=== PATIENT | female | born 1995 | race Caucasian/White ===

== ENCOUNTER 2017-11-02 07:13 | Emergency (ER) | payer OTHER ==
[2017-11-02 07:33] VITALS: BP 148/88
[2017-11-02] MEDS ORDERED: Ibuprofen TAB* 600 MG PO ONE (07:38)
--- NOTE | 2017-11-02 07:45 | UC ---
Ear Complaint HPI - HPI Summary HPI Summary: Awoke with right ear pain at 5 AM. Has allergies and gets shots. - History of Current Complaint Chief Complaint: UCEar Stated Complaint: RIGHT EAR CONCERN Time Seen by Provider: 11/02/17 07:37 Hx Obtained From: Patient Hx Last Menstrual Period: 10/30/17 ?: No Onset/Duration: Sudden Onset, Lasting Hours - 2 Severity Initially: Severe Severity Currently: Severe Pain Intensity: 17 Aggravating Factors: Nothing Alleviating Factors: Nothing Associated Signs/Symptoms: Positive: Hearing Loss. Negative: Discharge, Trauma to Ear, Swelling @, URI Symptoms Related History: Seasonal Allergies - Allergies/Home Medications Allergies/Adverse Reactions: Allergies Allergy/AdvReac Type Severity Reaction Status Date / Time clavulanic acid AdvReac GI Upset Verified 11/02/17 07:28 Raw Fruits and Vegetables Allergy Itching to Uncoded 11/02/17 07:28 Throat Swelling Home Medications: Home Medications Albuterol HFA INHALER* [Ventolin HFA Inhaler*] 1 - 2 puff INH Q4H PRN 11/02/17 [ History Confirmed 11/02/17] LevoCETirizine TAB (NF) [Xyzal TAB (NF)] 5 mg PO DAILY 11/02/17 [History Confirmed 11/02/17] Montelukast Sodium TAB* [Singulair 10 MG TAB*] 10 mg PO DAILY 11/02/17 [History Confirmed 11/02/17] Norethindr/Eth Estradiol(Nf) [Lo Loestrin Fe (NF)] 1 tab PO DAILY 11/02/17 [ History Confirmed 11/02/17] PMH/Surg Hx/FS Hx/Imm Hx Respiratory History: Asthma - Surgical History Surgical History: Yes Surgery Procedure, Year, and Place: Right Index Fracture and Ligament Repair, ~ 2012; Tonsillectomy, ~2005 - Family History Known Family History: Positive: Cardiac Disease, Hypertension Negative: Diabetes - Social History Occupation: Student Lives: Dormitory/Roommates Alcohol Use: Weekly Substance Use Type: Marijuana Substance Use Comment - Amount & Last Used: Daily Smoking Status (MU): Never Smoked Tobacco Review of Systems ENT: Ear Ache, Nasal Discharge Is Patient Immunocompromised?: No All Other Systems Reviewed And Are Negative: Yes Physical Exam Triage Information Reviewed: Yes Appearance: Well-Appearing, Well-Nourished, Pain Distress Vital Signs: Initial Vital Signs Temp 97.9 F 11/02/17 07:24 Pulse 66 11/02/17 07:24 Resp 20 11/02/17 07:24 BP 148/88 11/02/17 07:24 Pulse Ox 98 11/02/17 07:24 Vital Signs Reviewed: Yes Eyes: Positive: Conjunctiva Inflamed - with crying ENT: Positive: Pharynx normal, Nasal congestion - with allergic changes, TMs normal - , TM red - AD. Negative: TM bulging - Retracted AD Neck exam: Normal Respiratory Exam: Normal Cardiovascular Exam: Normal Musculoskeletal Exam: Normal Neurological Exam: Normal Psychological Exam: Normal Skin Exam: Normal Ear Complaint Course/Dx - Differential Dx/Diagnosis Differential Diagnosis/HQI/PQRI: Barotrauma, Otitis Externa, Otitis Media, URI Provider Diagnoses: Allergic rhinitis. Right eustachian tube dysfunction with otalgia Discharge - Sign-Out/Discharge Documenting (check all that apply): Patient Departure All imaging exams completed and their final reports reviewed: Yes - Discharge Plan Condition: Stable Disposition: HOME Prescriptions: Fluticasone NASAL SPRAY 50MCG* [Flonase NASAL SPRAY 50MCG*] 2 spray BOTH NARES DAILY #1 btl Patient Education Materials: Allergic Rhinitis (ED), Earache (ED) Referrals: No Primary Care Phys,NOPCP [Primary Care Provider] - Additional Instructions: NASAL SPRAYS AND DROPS: Afrin in the PUMP/ MIST bottle (Get generic 12 hours nasal decongestant spray). Tilt your head down and look at the floor while doing a strong sniff with the spray. Decongestant nasal sprays and drops often give dramatic relief from congestion. They are often recommended for patients with sinus infection to assist with sinus drainage. Persons with high blood pressure should consult the doctor before using these nasal sprays. Afrin and Candido-Synephrine are common [id number] preparations. They should not be used for more than five days, as "rebound" congestion can occur - - the congestion flares as the drug wears off. A way of dealing with this rebound congestion problem is to medicate only one nostril each time, allowing the other nostril to recover from the medicine' s effects. When you no longer need the drug during the day, spray only one nostril each night. This helps you sleep well without severe rebound congestion. Call the doctor if you develop severe headache, palpitations, or chest pain. hyaqu SINUS RINSE: CHECK OUT AT [facility] Saline nasal wash helps with mucous, allergies and congestion. It can be used up to twice a day or only as needed. Use lukewarm tap water. It does not have to be sterilized or distilled water. Do 1/3 on each side and snort out of both nostrils. Repeat the process with 1/6 of the bottle on each side with snorting in between to finish the solution in the bottle - Billing Disposition and Condition Condition: STABLE Disposition: Home
== END 2017-11-02 08:07 | disposition home or self-care (01) ==
LOC: UCCORT 07:13
DX: J30.9 Allergic rhinitis, unspecified (principal); H69.91 Unspecified Eustachian tube disorder, right ear; H92.01 Otalgia, right ear; Z88.1 Allergy status to other antibiotic agents; Z91.018 Allergy to other foods
CPT/HCPCS: 99202; A9270-GY; G0463